=== PATIENT | male | born 1940 | race Caucasian/White ===

== ENCOUNTER 2024-05-07 18:58 | Inpatient (IN) | payer MEDICARE, SELFPAY ==
[2024-05-07] VITALS (17 sets, daily range): BP systolic 124–217; BP diastolic 71–125; PULSE 59–100; RESP 15–26; TEMP 36.6; O2SAT 88–94; BMI 26.4
--- NOTE | 2024-05-07 19:18 | CTR_ITS ---
PROCEDURE INFORMATION: Exam: CT Head Without Contrast Exam date and time: 05/07/2024 7:27 PM Age: 83 years old Clinical indication: Stroke-like symptoms; Altered mental status/memory loss; Additional info: Possible stroke TECHNIQUE: Imaging protocol: Computed tomography of the head without contrast. Radiation optimization: All CT scans at this facility use at least one of these dose optimization techniques: automated exposure control; mA and/or kV adjustment per patient size (includes targeted exams where dose is matched to clinical indication); or iterative reconstruction. Other technique: STROKE PROTOCOL was implemented. COMPARISON: No relevant prior studies available. RADIATION DOSE METRICS: Total DLP (mGy-cm): 1188.18 FINDINGS: Brain: Diffuse cerebral atrophy, consistent with patient's age. No hemorrhage. Small area of encephalomalacia/gliosis at the left occipital lobe. No evidence of acute territorial infarction. Mild bilateral cerebral white matter hypodensities likely on the basis of chronic microvascular ischemic change. No mass effect. Cerebral ventricles: Ventricles are in proportion to the degree of atrophy. Paranasal sinuses: Visualized sinuses are unremarkable. No fluid levels. Mastoid air cells: Visualized mastoid air cells are well aerated. Bones: No acute fracture. Small metallic densities along the left lamina papyracea without adjacent inflammatory change are likely chronic. Soft tissues: Unremarkable. Vasculature: Bilateral ICA and vertebral artery calcifications. Couple of tiny calcifications at the medial left parietal sulci are likely vascular. CT/CT head wo con* [id number]: 1[address] No CT evidence of acute territorial infarction, hemorrhage, or mass effect. 2. Small area of encephalomalacia/gliosis at the left occipital lobe may represent chronic infarct. 3. Small metallic densities along the left lamina papyracea without adjacent inflammatory change or fracture are likely chronic. ASSESSMENT: ASPECTS ([place] Stroke Program Early CT Score) is 10.
--- NOTE | 2024-05-07 19:18 | XRR_ITS ---
PROCEDURE INFORMATION: Exam: XR Chest Exam date and time: 05/07/2024 7:21 PM Age: 83 years old Clinical indication: Other: AMS; Prior surgery; Surgery date: 6+ months; Surgery type: Open heart; Additional info: Weakness TECHNIQUE: Imaging protocol: Radiologic exam of the chest. Views: 1 view. COMPARISON: No relevant prior studies available. FINDINGS: Lungs: Pulmonary hypoinflation without consolidation. Pleural spaces: Unremarkable. No pleural effusion. No pneumothorax. Heart/Mediastinum: Unremarkable. No cardiomegaly. Bones/joints: Degenerative changes along the spine and shoulders. Prior median sternotomy. XR/XR chest 1V portable [id number] IMPRESSION: No acute findings.
--- NOTE | 2024-05-07 19:18 | CTR_ITS ---
PROCEDURE INFORMATION: Exam: CTA Head With Contrast, Arteriography Exam date and time: 05/07/2024 7:31 PM Age: 83 years old Clinical indication: Stroke-like symptoms; Left facial droop; Additional info: Possible stroke TECHNIQUE: Imaging protocol: Computed tomographic angiography of the head with contrast. Exam focused on the arteries. 3D rendering (Not supervised by radiologist): MIP and/or 3D reconstructed images were created by the technologist. Radiation optimization: All CT scans at this facility use at least one of these dose optimization techniques: automated exposure control; mA and/or kV adjustment per patient size (includes targeted exams where dose is matched to clinical indication); or iterative reconstruction. Contrast material: OMNI 350; Contrast volume: 100 ml; Contrast route: INTRAVENOUS (IV); COMPARISON: CT head wo con* [id number] 05/07/2024 7:27 PM RADIATION DOSE METRICS: Total DLP (mGy-cm): 531 FINDINGS: ANTERIOR CIRCULATION: Right internal carotid artery: Intracranial segment is patent with no significant stenosis. No aneurysm. Atherosclerotic calcification along the carotid siphon. Right middle cerebral artery: No occlusion or significant stenosis. No aneurysm. Right anterior cerebral artery: No occlusion or significant stenosis. No aneurysm. Left internal carotid artery: Intracranial segment is patent with no significant stenosis. No aneurysm. Atherosclerotic calcification along the carotid siphon. Left middle cerebral artery: No occlusion or significant stenosis. No aneurysm. Left anterior cerebral artery: No occlusion or significant stenosis. No aneurysm. POSTERIOR CIRCULATION: Right vertebral artery: No occlusion or significant stenosis. No aneurysm. Left vertebral artery: No occlusion or significant stenosis. No aneurysm. Basilar artery: No occlusion or significant stenosis. No aneurysm. Right posterior cerebral artery: No occlusion or significant stenosis. No aneurysm. Left posterior cerebral artery: origin. No occlusion or significant stenosis. No aneurysm. Brain: No definite mass, mass effect, or midline shift. Small area of encephalomalacia/gliosis at the left occipital lobe. Couple tiny vascular calcifications at the medial left parietal sulci. Cerebral ventricles: No hydrocephalus. Paranasal sinuses: Small right maxillary sinus mucous retention cyst. Bones/joints: Small metallic densities along the left lamina papyracea without adjacent inflammatory change or fracture are likely chronic. Soft tissues: Unremarkable. PROCEDURE INFORMATION: Exam: CTA Neck With Contrast Exam date and time: 05/07/2024 7:31 PM Age: 83 years old Clinical indication: Stroke-like symptoms; Left facial droop; Additional info: Possible stroke TECHNIQUE: Imaging protocol: Computed tomographic angiography of the neck with contrast. Exam focused on the cervical segments of the vasculature. 3D rendering (Not supervised by radiologist): MIP and/or 3D reconstructed images were created by the technologist. Radiation optimization: All CT scans at this facility use at least one of these dose optimization techniques: automated exposure control; mA and/or kV adjustment per patient size (includes targeted exams where dose is matched to clinical indication); or iterative reconstruction. Contrast material: OMNI 350; Contrast volume: 100 ml; Contrast route: INTRAVENOUS (IV); COMPARISON: 1. CT head wo con* [id number] 05/07/2024 7:27 PM 2. CR (CHEST, ) 05/07/2024 7:21 PM RADIATION DOSE METRICS: Total DLP (mGy-cm): 531 FINDINGS: Right common carotid artery: No stenosis. No dissection or occlusion. Right internal carotid artery: Mild stenosis of the proximal extracranial segment. No dissection or occlusion. Right external carotid artery: No occlusion or stenosis of the origin. Left common carotid artery: No stenosis. No dissection or occlusion. Left internal carotid artery: Moderate stenosis of the proximal extracranial segment approximately 50%. No dissection or occlusion. Left external carotid artery: No occlusion or stenosis of the origin. Right vertebral artery: No stenosis. No dissection or occlusion. Left vertebral artery: No stenosis. No dissection or occlusion. Soft tissues: Unremarkable. No significant soft tissue swelling. Bones/joints: No acute fracture. Mild degenerative change along the spine. Prior median sternotomy. Lungs: Mild emphysematous change of the imaged upper lungs. Minimal secretions at the lower trachea. Coronary arteries: Prior CABG. CT/CT angio headneck* [id number] IMPRESSION: No large vessel stenosis or occlusion. IMPRESSION: 1. Moderate left proximal ICA stenosis. 2. Mild right proximal ICA stenosis. REFERENCES: NASCET CRITERIA. The degree of stenosis in the cervical segment of the internal carotid artery is based on NASCET criteria. Normal is no stenosis. Mild is less than 50% stenosis. Moderate is 50-69% stenosis. Severe is 70% to 99% stenosis. Total occlusion is no detectable patent lumen.
--- NOTE | 2024-05-07 19:29 | ED_ITS ---
HPI - Neuro Symptoms/Deficit 2 General: Chief Complaint: Neuro Symptoms/Deficit Stated Complaint: Possible Stoke, Dissorated,left side Weakness Time Seen by Provider: 05/07/24 19:05 History of Present Illness: 83-year-old man with a history of hypert ension and coronary artery disease status post CABG who currently takes no medications and says he controls his blood pressure with [id number] type medications who presents to the emergency room after having an episode of word salad and facial droop. Last known well time was about 2 hours ago. Family says that he had word salad and slurred speech and left facial droop. He had no trouble walking. No focal motor deficits in his extremities. By the time he arrives here symptoms have almost completely resolved. Family says he seems just a little bit tired. He still seems to take a little bit of time to answer questions. Family says he has been quite stressed out recently because they moved him out of his home and is living with them. He is on no blood thinners. Review of Systems 2 Narrative: Constitutional symptoms: Negative except as documented in HPI. Skin symptoms: Negative except as documented in HPI. Eye symptoms: Negative except as documented in HPI. ENMT symptoms: Negative except as documented in HPI. Respiratory symptoms: Negative except as documented in HPI. Cardiovascular symptoms: Negative except as documented in HPI. Gastrointestinal symptoms: Negative except as documented in HPI. Genitourinary symptoms: Negative except as documented in HPI. Musculoskeletal symptoms: Negative except as documented in HPI. Neurologic symptoms: Negative except as documented in HPI. Psychiatric symptoms: Negative except as documented in HPI. Endocrine symptoms: Negative except as documented in HPI. Physical Exam 2 Narrative: EXAM NARRATIVE: General: Alert, no acute distress. Skin: Warm, dry. Head: Normocephalic, atraumatic. Neck: Supple, trachea midline. Eye: Extraocular movements are intact. Ears, nose, mouth and throat: mucosa moist. Cardiovascular: Regular, Normal peripheral perfusion. Respiratory: Lungs are clear to auscultation, respirations are non-labored, breath sounds are equal, Symmetrical chest wall expansion. Gastrointestinal: Soft, Nontender, Non distended Musculoskeletal: Normal ROM, no deformity. Neurological: Alert and oriented, No focal neurological deficit observed. Psychiatric: Cooperative, appropriate mood & affect. Course 2 Vital Signs: Vital signs: Vital Signs Temperature 97.9 F 05/07/24 19:02 Pulse Rate 83 05/07/24 20:22 Respiratory Rate 16 05/07/24 20:22 Blood Pressure 171/102 05/07/24 20:22 Pulse Oximetry 92 05/07/24 20:22 Oxygen Delivery Me thod Room Air 05/07/24 19:02 MDM - Neuro Symptoms/Deficit Medical Decision Making Medical decision making: Differential diagnosis for patient with focal neurologic deficit(s) includes but not limited to and based on the above HPI, review of systems and physical exam: ischemic stroke, hemorrhagic stroke and embolic stroke secondary to atrial fibrillation), TIA, Rodriguez's palsey, metabolic encephalopathy with previous stroke. Orders placed to evaluate differential diagnosis based on the above differential, HPI and physical exam NIH Stroke Scale/Score (NIHSS) from [employer] on 05/07/2024 All calculations should be rechecked by clinician prior to use RESULT SUMMARY: 0 points NIH Stroke Scale INPUTS: 1A: Level of consciousness ?> 0 = Alert; keenly responsive 1B: Ask month and age ?> 0 = Both questions right 1C: 'Blink eyes' & 'squeeze hands' ?> 0 = Performs both tasks 2: Horizontal extraocular movements ?> 0 = Normal 3: Visual steele ?> 0 = No visual loss 4: Facial palsy ?> 0 = Normal symmetry 5A: Left arm motor drift ?> 0 = No drift for 10 seconds 5B: Right arm motor drift ?> 0 = No drift for 10 seconds 6A: Left leg motor drift ?> 0 = No drift for 5 seconds 6B: Right leg motor drift ?> 0 = No drift for 5 seconds 7: Limb Ataxia ?> 0 = No ataxia 8: Sensation ?> 0 = Normal; no sensory loss 9: Language/aphasia ?> 0 = Normal; no aphasia 10: Dysarthria ?> 0 = Normal 11: Extinction/inattention ?> 0 = No abnormality Consultation: I spoke with Dr. Shipley was on-call for neurology. Recommend CT and CTA. Recommends bringing blood pressure down slowly with a Cardene drip. Further recommendations after his review with patient and his cardiology consult, 2D echo, 81 mg aspirin and a noncontrast MRI tomorrow. Lab Review: Laboratory results were reviewed and interpreted by myself the emergency room physician. Lab work is fairly unremarkable. White count is 4.6. Hemoglobin normal at 14.9. BUN and creatinine are normal at 15 and 0.9. His platelets are slightly low at 150. CT head: Small area of encephalomalacia at the occipital lobe that may represent a chronic infarct. No acute intracranial process. no intracranial hemorrhage, no evidence of infarct. no evidence of acute fracture.this was reviewed and interpreted by myself the emergency room physician. I also reviewed the radiology report. CTA of the head and neck: There is moderate left proximal ICA stenosis and mild right proximal ICA stenosis. This was reviewed and interpreted by myself the emergency room physician. I also reviewed the radiology report. I reviewed the patient's medical record. Reexamination: Patient remained stable. No focal motor deficits. No confusion. No dysarthria. No facial droop. No increased work of breathing. Assessment and plan: TIA Accelerated hypertension ? Cardene drip for slow reduction of blood pressure ? 81 mg aspirin -I discussed the patient with the hospitalist on-call who is admitting the patient. - Discussed findings and plan with patient. Answered any questions. - All laboratory values were reviewed and interpreted personally by myself, the ER physician - All imaging was reviewed and interpreted personally by myself, the ER physician. - Evaluation and treatment of this problem were appropriate in the emergency setting -I spent a total of >35 minutes of critical care time managing the patient, independent of any other practitioner. -The time involved in the performance of separately reportable procedures was not counted towards critical care time. Lab Data 05/07/24 19:15 05/07/24 19:15 Radiology Impressions Chest X-Ray 05/07/24 19:18 IMPRESSION: No acute findings. Head CT 05/07/24 19:18 IMPRESSION: 1. No CT evidence of acute territorial infarction, hemorrhage, or mass effect. 2. Small area of encephalomalacia/gliosis at the left occipital lobe may represent chronic infarct. 3. Small metallic densities along the left lamina papyracea without adjacent inflammatory change or fracture are likely chronic. ASSESSMENT: ASPECTS ([place] Stroke Program Early CT Score) is 10. Head/Neck CTA 05/07/24 19:18 IMPRESSION: No large vessel stenosis or occlusion. IMPRESSION: 1. Moderate left proximal ICA stenosis. 2. Mild right proximal ICA stenosis. REFERENCES: NASCET CRITERIA. The degree of stenosis in the cervical segment of the internal carotid artery is based on NASCET criteria. Normal is no stenosis. Mild is less than 50% stenosis. Moderate is 50-69% stenosis. Severe is 70% to 99% stenosis. Total occlusion is no detectable patent lumen. Laboratory Results WBC 4.61 10^3/uL (3.29-11.43) 05/07/24 19:15 RBC 5.30 10^6/uL (3.85-5.65) 05/07/24 19:15 Hgb 14.90 g/dL (11.27-16.99) 05/07/24 19:15 Hct 47.6 % (37-53) 05/07/24 19:15 MCV 89.8 fl (82-101) 05/07/24 19:15 MCH 28.1 pg (27-33) 05/07/24 19:15 MCHC 31.3 g/dL (30-55) 05/07/24 19:15 RDW 14.6 % (12.1-15.1) 05/07/24 19:15 Plt Count 150 10^3/cmm (157-399) L 05/07/24 19:15 MPV 9.8 fL (7.4-10.4) 05/07/24 19:15 Neut % (Auto) 63.9 % 05/07/24 19:15 Lymph % (Auto) 25.8 % 05/07/24 19:15 [place] % (Auto) 6.5 % 05/07/24 19:15 Eos % (Auto) 2.4 % 05/07/24 19:15 Baso % (Auto) 0.7 % 05/07/24 19:15 Neut # (Auto) 2.95 10^3/uL (1.8-7.7) 05/07/24 19:15 Lymph # (Auto) 1.2 10^3/uL (0.8-4.8) 05/07/24 19:15 [place] # (Auto) 0.3 10^3/uL (0.2-0.9) 05/07/24 19:15 Eos # (Auto) 0.1 10^3/uL (0.0-0.8) 05/07/24 19:15 Baso # (Auto) 0.0 10^3/uL (0.0-0.1) 05/07/24 19:15 Nucleated RBC % (auto) 0 % 05/07/24 19:15 Nucleated RBCs # 0.0 /100WBC 05/07/24 19:15 PT 13.50 SECONDS (12.1-14.9) 05/07/24 19:15 INR 1.00 (0.8-1.2) 05/07/24 19:15 APTT 26.2 SECONDS (23.9-36.7) 05/07/24 19:15 Sodium 140 mmol/L (136-145) 05/07/24 19:15 Potassium 4.1 mmol/L (3.5-5.1) 05/07/24 19:15 Chloride 104 mmol/L (98-107) 05/07/24 19:15 Carbon Dioxide 27 mmol/L (22-29) 05/07/24 19:15 Anion Gap 13.1 (5-19) 05/07/24 19:15 BUN 15 mg/dL (8-23) 05/07/24 19:15 Creatinine 0.9 mg/dL (0.7-1.2) 05/07/24 19:15 GFR Calculation Not Reportable 05/07/24 19:15 Glucose 118 mg/dL (65-115) H 05/07/24 19:15 Calculated Osmolality 292 mOsm/kg (285-295) 05/07/24 19:15 Calcium 9.3 mg/dL (8.5-10.5) 05/07/24 19:15 Total Bilirubin 0.3 mg/dL (0.15-1.2) 05/07/24 19:15 AST 16 U/L (0-40) 05/07/24 19:15 ALT 16 U/L (0-41) 05/07/24 19:15 Alkaline Phosphatase 96 U/L (40-130) 05/07/24 19:15 Total Protein 7.9 g/dL (6.6-8.7) 05/07/24 19:15 Albumin 4.3 g/dL (3.5-5.2) 05/07/24 19:15 Globulin 3.6 g/dL (1.3-4.6) 05/07/24 19:15 Urine Color Yellow (Yellow) 05/07/24 19:49 Urine Appearance Clear (CLEAR) 05/07/24 19:49 Urine pH 5 (5-7) 05/07/24 19:49 Ur Specific [place]iler 1.010 (1.005-1.030) 05/07/24 19:49 Urine Protein Neg (Negative) 05/07/24 19:49 Urine Glucose (UA) Norm (Normal) 05/07/24 19:49 Urine Ketones Negative (Negative) 05/07/24 19:49 Urine Blood Neg (Negative) 05/07/24 19:49 Urine Nitrate Negative (Negative) 05/07/24 19:49 Urine Bilirubin Neg (Negative) 05/07/24 19:49 Urine Urobilinogen Norm mg/dL (Negative) 05/07/24 19:49 Ur Leukocyte Esterase Negative (Negative) 05/07/24 19:49 Urine RBC None /hpf (0-2) 05/07/24 19:49 Urine WBC None /hpf (0-5) 05/07/24 19:49 Ur Squamous Epith Cells 0-4 /hpf (0-5) H 05/07/24 19:49 Amorphous Sediment Not Reportable 05/07/24 19:49 Urine Bacteria Trace /hpf (NONE) 05/07/24 19:49 All radiology interpretation(s) finalized by discharge Discharge Plan Discharge Patient Disposition: Placed in Observation Clinical Impression: Transient cerebral ischemia, Accelerated hypertension Coding Level of Care Code ED Liquor Inspector for Harpreet Alcaraz
[2024-05-07 19:33] LABS: Basophils % 0.7 %; Eosinophils # 0.1 10^3/uL (0.0-0.8); Eosinophils % 2.4 %; Hematocrit 47.6 % (37-53); Lymphocytes # 1.2 10^3/uL (0.8-4.8); Lymphocytes % 25.8 %; Mean Corpuscular HGB Conc 31.3 g/dL (30-55); Mean Corpuscular Hemoglobin 28.1 pg (27-33); Mean Corpuscular Volume 89.8 fl (82-101); Mean Platelet Volume 9.8 fL (7.4-10.4); Monocytes # 0.3 10^3/uL (0.2-0.9); Monocytes % 6.5 %; Neutrophils # 2.95 10^3/uL (1.8-7.7); Neutrophils % 63.9 %; Nucleated Red Blood Cells % 0 %; Platelet Count 150 10^3/cmm (157-399); Red Cell Distribution Width 14.6 % (12.1-15.1); White Blood Count 4.61 10^3/uL (3.29-11.43)
[2024-05-07 19:37] LABS: Partial Thromboplastin Time 26.2 SECONDS (23.9-36.7)
[2024-05-07 19:41] LABS: Alanine Aminotransferase 16 U/L (0-41); Albumin Level 4.3 g/dL (3.5-5.2); Alkaline Phosphatase 96 U/L (40-130); Anion Gap 13.1 (5-19); Aspartate Amino Transferase 16 U/L (0-40); Blood Urea Nitrogen 15 mg/dL (8-23); Calcium 9.3 mg/dL (8.5-10.5); Carbon Dioxide 27 mmol/L (22-29); Chloride 104 mmol/L (98-107); Creatinine Clr Calc Pharmacy 72.5237; Globulin 3.6 g/dL (1.3-4.6); Glucose 118 mg/dL (65-115); Osmolality Calculated 292 mOsm/kg (285-295); Potassium 4.1 mmol/L (3.5-5.1); Sodium 140 mmol/L (136-145); Total Bilirubin 0.3 mg/dL (0.15-1.2); Total Protein 7.9 g/dL (6.6-8.7)
[2024-05-07] MEDS: iohexol 350 mg/mL 500 mL Btl (per mL) IV (19:41)
[2024-05-07] MEDS: nicardipine 20 MG/200 ML PREMIX 50 MG IV (20:09)
[2024-05-07 20:10] LABS: Bilirubin Urine Neg (Negative); Blood Urine Neg (Negative); Glucose Urine UA Norm (Normal); Ketones Urine Negative (Negative); Leukocyte Esterase Urine Negative (Negative); Nitrate Urine Negative (Negative); Protein Urine Neg (Negative); Urine Appearance Clear (CLEAR); Urine Color Yellow (Yellow); Urobilinogen Urine Norm (Negative); pH Urine 5 (5-7)
[2024-05-07 20:11] LABS: Add Urine Culture? No; Bacteria Urine TRACE /hpf; Squamous Epithelial Cell Urine 0-4 /hpf (0-5)
--- NOTE | 2024-05-07 20:23 | P.CONIM_ITS ---
Providers/Reason For Consult 2 Consulting Physician/Specialty*: Oren Shipley MD neurology and epilepsy Reason for Consult*: Transient ischemic attack manifested as slurred speech with left-sided facial drooping and left upper extremity weakness and inability to stand on 05/07/2024 History of Present Illness History of Present Illness Jamison Serrato is a 83 year old male with a history of hypertension and coronary artery disease status post coronary artery bypass graft in 2018. Patient also has history of short-term memory difficulty. On 05/07/2024 around 4 PM the patient was reported to attempt to take a nap. The patient's family member heard the patient making noise and when the family member checked on the patient he was displaying slurred speech, left lower facial weakness, left arm weakness and inability to get up. The patient's was reported to have some improvement in his instability and was able to stand and walk but continued to have slurred speech, left lower facial weakness and left arm weakness. The patient was brought by the family via a personal vehicle to [facility] emergency room. In the emergency room the patient's blood pressure was reported to be significantly elevated. According to the family member who was present at [facility] emergency room, the patient has been using homeopathic medications for blood pressure and heart disease and has not been on any prescription medications for approximately 3 years. NIH score = 0. Serum glucose 118. No code stroke was initiated but I was contacted by Dr. Wilma Orozco the emergency room physician at 7:20 PM on 05/07/2024. Although the patient presented to the [facility] emergency room within the intravenous thrombolytic window, the patient's NIH score =0 and therefore the patient was not a candidate for thrombolytics and no thrombolytics were administered. The patient will be scheduled to be admitted to the hospitalist and undergo 2D echocardiogram, cardiac evaluation and patient will be started on aspirin 81 mg p.o. now and 81 mg p.o. every morning. I recommended the patient be started on a lipid-lowering agent per NIH stroke protocol but the family member who was present in the [facility] emergency department room #11 refused for the patient to be on any cholesterol-lowering agents. The family member is aware of the potential risk of not following the NIH stroke protocol recommendations. The patient was started on intravenous Cardizem to lower his elevated blood pressure. Repeat blood pressure prior to starting Cardizem 198/105. Current blood pressure on IV Cardizem drip at low-dose 164/90 at 20:32 PM on 05/06/2024. Noncontrast head CT performed on 05/07/2024 revealed the following: Small area of encephalomalacia/gliosis at the left occipital lobe may represent chronic infarct. Small metallic densities along the left lamina papyracea without adjacent inflammatory change or fracture are likely chronic. CT angiogram of the head and neck 05/07/2024 revealed the following: IMPRESSION: 1. Moderate left proximal ICA stenosis. 2. Mild right proximal ICA stenosis. Drug allergies: Sulfur and penicillin Current home medications: Homeopathic medication for hypertension and heart disease Past medical history: Coronary artery disease status post coronary artery bypass graft 2018 Hypertension Short-term memory difficulty Habits: Patient drinks 1 beer twice a week. Patient does not smoke. Social history: Currently the patient is living with his family Family history: Negative for strokes or TIAs Review of Systems 2 General: Reports: 10 or more systems reviewed and unremarkable except in HPI and below Medications/Allergies Allergies Allergy/AdvReac Type Severity Reaction Status Date / Time sulfa and penicillin when Allergy Unknown Uncoded 05/07/24 19:08 mixed Current Medications Generic Name Dose Route Start Last Admin Trade Name Freq PRN Reason Stop Dose Admin Nicardipine/Sodium Chloride 20 mg in 200 mls @ 0 mls/hr 05/07/24 19:30 05/07/24 20:09 Cardene IV 5 mg/hr .Q0M THAO 50 mls/hr Administration Protocol Per Protocol PFSH Acute 2 PFSH: Medical History (Updated 05/07/24 @ 20:34 by Alyson Mayen MD) Hypertension Coronary disease Vitals/I&O/Wt Last Vital Signs Temp 97.9 F 05/07/24 19:02 Pulse 83 05/07/24 20:22 Resp 16 05/07/24 20:22 BP 171/102 05/07/24 20:22 Pulse Ox 92 05/07/24 20:22 O2 Del Method Room Air 05/07/24 19:02 Weight last 48 hrs Weight 190 lb Physical Exam 2 Narrative: NIH score = 0 Serum glucose 118 Blood pressure 164/90 heart rate 75 respiration 16 temperature 97.9 The patient is alert and oriented to person place and situation. Speech fluent. The patient was able to repeat. He denied any pain. Head normocephalic. Neck supple. Cranial nerves II through XII intact. Pupils equal round and reactive to light and accommodation. The patient was able to follow commands and answer questions correctly. Visual steele full via confrontation. Extraocular movements intact. There were no nystagmus. Motor testing 5/5 bilaterally. There was no drift. Deep tendon reflexes 2+ bilaterally. Plantar responses flexor bilaterally. There was no clonus. Ixehnp-nowl-siezej and hasf-bwef-yjpv maneuvers revealed no ataxia. Sensory examination was intact to touch. There was no extinction on double sensory stimulation. Throat clear. Lungs clear. Heart regular rhythm and rate. Extremities were negative for clubbing cyanosis or edema. Pulses 3+ bilaterally. Chest reveals signs of coronary artery bypass surgery. There was no sign of infection. Data 05/07/24 19:15 05/07/24 19:15 A&P Assessment and plan (1) Transient cerebral ischemia: Impression: 1. Transient ischemic attack manifested as slurred speech with left-sided facial drooping and left upper extremity weakness and inability to stand on 05/07/2024 2. Small area of encephalomalacia/gliosis at the left occipital lobe may represent chronic infarct. 3. Small metallic densities along the left lamina papyracea without adjacent inflammatory change or fracture are likely chronic. 4. Moderate left proximal ICA stenosis. 5. Mild right proximal ICA stenosis. 6. Coronary artery disease status post coronary artery bypass graft 2017 7. History of hypertension was treated with homeopathic medications with accelerated hypertension 8. Short-term memory loss Plan: 1. Recommend hospital admission to the hospitalist to address accelerated hypertension and monitor for any recurrent TIAs 2. Recommend cardiology consult to assess for embolic source for stroke and to address any cardiac issues 3. 2D echocardiogram to assess for embolic source for TIA 4. Agree with obtaining noncontrast head MRI to further assess for acute stroke if no contraindications NOTE: see head CT report 05/07/2024 5. Recommend starting aspirin 81 mg p.o. now and 81 mg p.o. every morning with food thereafter per NIH stroke protocol (the patient's family member agreed to the patient starting low-dose aspirin) 6. I recommended the patient be started on a lipid-lowering agent per NIH stroke protocol but the patient's family member refused. The patient's family member is aware of the potential health risk of not following the NIH stroke protocol recommendation and the family member voiced understanding. 7. Neurochecks and blood pressure checks per NIH stroke protocol 8. Agree with intravenous Cardizem to slowly lower blood pressure (2) Hypertensive emergency: (3) Accelerated hypertension: Consult Attestations 2 Medical Necessity Statement: The patient was evaluated by neurology for transient ischemic attack Coding Level of Care Code 72553 Diagnoses Transient cerebral ischemia G45.9 Hypertensive emergency I16.1 Accelerated hypertension I10
--- NOTE | 2024-05-07 20:30 | P.HP_ITS ---
Providers/Chief Complaint 2 Chief Complaint: Possible Stoke, Dissorated,left side Weakness History of Present Illness Jamison Serrato is a 83 year old male who carries history of hypertension, does not take allopathic medications, has been on some homeopathic medications for 3 yrs for blood pressure and heart disease presenting with chief complaint of slurred speech, left sided weakness. Patient symptoms started around 4 PM when he attempted to take a nap. Patient was brought in by the family, patient family checked on him when he was making some nauseous at that point he had some slurred speech she was out able to get up on his own from the bed he also noticed some left-sided facial droop. In the ER he was diagnosed with hypertensive emergency he was put on Cardene drip. His symptoms resolved by the time he arrived in the ER NIH score was 0 he was not a TNKase candidate. He arrived within 2 hours of his onset of symptoms. Daughter is at the bedside stating that her father has memory deficit he is not able to recall all events but stating in 2018 patient had open heart surgery since then he has not taken any medication at all including aspirin Plavix or atorvastatin. They are highly against atorvastatin's or any cholesterol- lowering medications secondary to side effects Patient does not have any history of diabetes patient endorsing history of arthritis but not sure what type daughter thinks it is gout. Daughter was questioning why am I trying to rehabilitation services counselor them about cholesterol- lowering medications I reviewed living will, patient is full code until there is an irreversible condition and patient not able to eat, talk or wake up Review of Systems 2 Const: Denies: fever(s) Eyes: Denies: change in vision ENMT: Denies: throat pain Card: Denies: chest pain Resp: Denies: dyspnea GI: Denies: abdominal pain Medications/Allergies Allergies Allergy/AdvReac Type Severity Reaction Status Date / Time sulfa and penicillin when Allergy Unknown Uncoded 05/07/24 19:08 mixed PFSH Acute 2 PFSH: Medical History Arthritis Hypertension Coronary disease Surgical History History of open heart surgery [facility] 2017 Social History Smoking and tobacco/nicotine status: former use of tobacco/nicotine Vitals/I&O/Wt Last Vital Signs Temp 97.9 F 05/07/24 19:02 Pulse 83 05/07/24 20:22 Resp 16 05/07/24 20:22 BP 171/102 05/07/24 20:22 Pulse Ox 92 05/07/24 20:22 O2 Del Method Room Air 05/07/24 19:02 Weight last 48 hrs Weight 86.183 kg Physical Exam 2 Narrative: And I 0 Able to move his extremities GCS 15 NIH 0 Nonfocal neuroexam Pleasant cough Not a good historian Forgetful Hypertensive Currently on Cardene drip at 5 Afebrile Currently on room air Abdomen soft S1, S2 Data 05/07/24 19:15 05/07/24 19:15 A&P Assessment and plan (1) Accelerated hypertension: (2) Transient cerebral ischemia: (3) Hypertensive emergency: Plan TIA ABCD score 5 Patient has not been on any medications for his hypertension history Hypertensive emergency Currently on Cardene drip MAP reduction 25% in next 6 to 8 hours Requested echo with bubble study, CT head CTA head and neck unremarkable other than ICA stenosis Appreciate neuro recommendations MRI requested for the morning Will request PT OT ST Hypertensive emergency currently on Cardene drip Added amlodipine, chlorthalidone and lisinopril low-dose MAP reduction 25% in next 6 to 8 hours Patient does not want to use statins, I will start him on aspirin and Plavix for 20 days and then continue aspirin, Will need extensive counseling to convince patient to take medications and I think daughter is strictly against all the atorvastatin's, they do not even want to try ezetimibe Check A1c level, TSH, D-dimer, monitor rhythm on telemetry, add antihypertensive regimen and wean off Cardene drip Will use pur?ed diet until speech evaluation Full code DVT prophylaxis: Lovenox Daughter is only okay with aspirin Plavix for now does not want ezetimibe or atorvastatin's, Patient had CABG/open heart surgery at [facility] 2018 since then he has not been taking any medications Memory impairment: Patient is not able to recall events able to give simple answers Attestations 2 Medical Necessity Statement*: Anticipating more than 2 midnights in the hospital for management of TIA, hypertensive emergency Diagnoses Accelerated hypertension I10 Transient cerebral ischemia G45.9 Hypertensive emergency I16.1
--- NOTE | 2024-05-07 20:36 | USCV_ITS ---
Jamison Serrato Age: 83 Gender: M : 1940 Exam Date: 05/07/2024 22:33 Ordering Phys: Alyson Mayen MD Technologist: FRANCISCO Exam Location: [facility] [place] Indication: BUBBLE STUDY c/o TIA, hx CAD s/p CABG but patient cannot recall the year, c/o facial droop, slurred speech, confusion BP: 200 / 83 HR: 68 Rhythm: Sinus Technical Quality: Adequate MEASUREMENTS (Male / Female) Normal Values 2D ECHO LV Diastolic Diameter PLAX 3.2 cm 4.2 - 5.9 / 3.9 - 5.3 cm IVS Diastolic Thickness 1.9 cm 0.6 - 1.0 / 0.6 - 0.9 cm IVS Systolic Thickness 2.0 cm LVPW Diastolic Thickness 1.6 cm 0.6 - 1.0 / 0.6 - 0.9 cm LVPW Systolic Thickness 1.2 cm LVOT Diameter 1.8 cm LV Ejection Fraction 2D Teich 57.1 % LV Ejection Fraction MOD 2C 67.1 % LV Ejection Fraction 2C AL 68.5 % LA Diameter 4.7 cm Aorta at Sinotubular Diameter 3.3 cm IVC Diameter 1.5 cm M-MODE LA Ao Ratio MM 1.0 AV Cusp Separation MM 1.8 cm DOPPLER AV Peak Velocity 127.0 cm/s LVOT Peak Velocity 103.0 cm/s AV Area Cont Eq vti 2.7 cm squared AV Area Cont Eq pk 2.1 cm squared MV Peak Velocity 101.0 cm/s MV Area PHT 3.6 cm squared Mitral E to A Ratio 0.7 TV Peak Velocity 262.0 cm/s TR Peak Velocity 278.0 cm/s TR Peak Gradient 30.9 mmHg TV Peak E Velocity 66.0 cm/s Right Atrial Pressure 3.0 mmHg Pulmonary Artery Systolic Pressu 33.9 mmHg PV Peak Velocity 89.0 cm/s FINDINGS Left Ventricle Left ventricle is normal in size. LV systolic function is normal with EF of 55 to 60%. No regional wall motion abnormalities are seen. Grade 1 diastolic dysfunction Right Ventricle Normal in size and function Right Atrium Normal in size. Bubble study is limited quality as short runs post saline bubble injection are recorded but no shunting is evident. Left Atrium Normal in size Mitral Valve Mild mitral annular calcification. Mild mitral regurgitation. Aortic Valve Aortic valve is thickened. No significant stenosis or regurgitation. Tricuspid Valve Mild tricuspid regurgitation. Pulmonary artery systolic pressure is normal. Pulmonic Valve Not well visualized Pericardium Normal Aorta Normal in size IVC Appears to be normal CONCLUSIONS LV systolic function is normal with EF of 55 to 60%. Grade 1 diastolic dysfunction. Bubble study is limited quality as short runs post saline bubble injection are recorded but no shunting is evident. Mild mitral regurgitation Mild tricuspid regurgitation No comparison studies are available. Kg Hernandez MD (Electronically Signed) Final Date: 08 May 2024 12:41 S
[2024-05-07 21:09] LABS: D Dimer 0.71 ug/mLFEU (0-0.59)
[2024-05-07] MEDS: lisinopril 20 mg Tablet PO (21:12)
[2024-05-07 21:25] LABS: Estmated Average Glucose 108; Hemoglobin A1C 5.4 % (4.0-6.0)
[2024-05-07 21:31] LABS: Vitamin B12 305 pg/mL (232-1245)
[2024-05-07 22:52] LABS: Uric Acid 6.9 mg/dL (3.4-7.0)
[2024-05-07] MEDS: aspirin 81 mg Chew Tablet PO (23:09)
[2024-05-07] MEDS: enoxaparin 40 mg/0.4 mL Syringe SUBCUT (23:09)
[2024-05-08] VITALS (24 sets, daily range): BP systolic 106–146; BP diastolic 61–97; PULSE 56–86; RESP 13–25; TEMP 36.4–36.7; O2SAT 87–94
[2024-05-08 04:24] LABS: Anion Gap 15.1 (5-19); Blood Urea Nitrogen 14 mg/dL (8-23); Calcium 9.1 mg/dL (8.5-10.5); Carbon Dioxide 28 mmol/L (22-29); Chloride 106 mmol/L (98-107); Glucose 110 mg/dL (65-115); Magnesium 2.2 mg/dL (1.7-2.3); Osmolality Calculated 299 mOsm/kg (285-295); Phosphorus 3.2 mg/dL (2.5-4.5); Potassium 5.1 mmol/L (3.5-5.1); Sodium 144 mmol/L (136-145)
--- NOTE | 2024-05-08 08:18 | ECG_ITS ---
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 Measurements Intervals [place] Rate: 76 P: 29 NE: 159 QRS: 29 QRSD: 102 T: 5 QT: 388 QTc: 439 Interpretive Statements SINUS RHYTHM INFERIOR MYOCARDIAL INFARCTION , PROBABLY OLD [40+ ms Q WAVE AND/OR ST/T ABNORMALITY IN II/aVF] No previous ECG available for comparison Electronically Signed On 05-08-2024 9:41:55 CDT by Kg Hernandez M.D. [id number]
[2024-05-08] MEDS: lisinopril 20 mg Tablet PO (09:25)
[2024-05-08] MEDS: sennosides-docusate Tablet 1 TAB PO (09:25)
[2024-05-08] MEDS: cyanocobalamin 1,000 mcg/mL SDV 1000 MCG IM (09:25)
[2024-05-08] MEDS: chlorthalidone 25 mg Tablet 12.5 MG PO (09:25)
[2024-05-08] MEDS: aspirin 81 mg EC Tablet PO (09:25)
[2024-05-08 09:28] LABS: Troponin(5th) Baseline 16 ng/L (0-15)
--- NOTE | 2024-05-08 10:19 | ECG_ITS ---
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 Measurements Intervals [place] Rate: 78 P: 32 IN: 165 QRS: 15 QRSD: 113 T: -1 QT: 375 QTc: 427 Interpretive Statements SINUS RHYTHM INFERIOR MYOCARDIAL INFARCTION , PROBABLY OLD [40+ ms Q WAVE AND/OR ST/T ABNORMALITY IN II/aVF] Compared to ECG 05/08/2024 08:36:01 No significant changes Electronically Signed On 05-08-2024 17:13:57 CDT by Kg Hernandez M.D. [id number]
[2024-05-08 11:21] LABS: Troponin 5 2HR 15.21 ng/L (0-15); Troponin 5 2HR Delta -0.79 ABS# (0-10)
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
--- NOTE | 2024-05-08 14:22 | ECG_ITS ---
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 Measurements Intervals [place] Rate: 78 P: 35 PA: 163 QRS: 29 QRSD: 101 T: 3 QT: 387 QTc: 441 Interpretive Statements SINUS RHYTHM INFERIOR MYOCARDIAL INFARCTION , PROBABLY OLD [40+ ms Q WAVE AND/OR ST/T ABNORMALITY IN II/aVF] Compared to ECG 05/08/2024 10:19:40 No significant changes Electronically Signed On 05-08-2024 17:13:15 CDT by Kg Hernandez M.D. [email or web address] [facility].[employer] [place]/store/[id number]
--- NOTE | 2024-05-08 16:15 | PC.NURSE ---
Discharge Note Patient discharged to [home] via [w/c to POV] accompanied by [family]. 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 Mobile pharmacy medications and/or prescriptions provided. Belongings/home medications returned.
== END 2024-05-08 16:15 | disposition home or self-care (01) | DRG 69 ==
LOC: ER 20:29 → CSU 05-08 00:35
PROVIDERS: Admitting Provider Internal Medicine; Emergency Provider Emergency Medicine; Visit Provider Family Medicine
DX: G45.9 Transient cerebral ischemic attack, unspecified (principal); I16.1 Hypertensive emergency; I10 Essential (primary) hypertension; I25.10 Atherosclerotic heart disease of native coronary artery without angina pectoris; Z95.1 Presence of aortocoronary bypass graft; G31.84 Mild cognitive impairment of uncertain or unknown etiology
CPT/HCPCS: 36415; 70450; 70496; 70498; 71045; 80048; 80053; 81001; 82607; 83036; 83735; 84100; 84443; 84484; 84550; 85025; 85378; 85610; 85730; 92523; 92610; 93005; 96365; 96372; 97116; 97161; 97165; 99285; C8924; J1650; J3420; Q9967

== ENCOUNTER → 2024-05-22 11:10 | Outpatient (BNVA) | payer MEDICARE, SELFPAY | DX: I10 Essential (primary) hypertension (principal) | CPT/HCPCS: 80053; 80061; 85025; 85379 ==

== ENCOUNTER 2024-05-27 16:13 | Outpatient (CLI) | payer MEDICARE, SELFPAY ==
--- NOTE | 2024-05-27 16:30 | USR_ITS ---
PROCEDURE INFORMATION: Exam: US Duplex Right Lower Extremity Veins, Limited Exam date and time: 05/27/2024 4:20 PM Age: 83 years old Clinical indication: Pain; Leg, lower; Right; Additional info: Right leg pain TECHNIQUE: Imaging protocol: Real-time duplex ultrasound of the right extremity with 2-D ngo scale, color Doppler flow and spectral waveform analysis including responses to compression and other maneuvers (when performed) with image documentation. Limited exam was focused on the right lower extremity veins. COMPARISON: No relevant prior studies available. FINDINGS: Right deep veins: Unremarkable. The common femoral, femoral, proximal profunda femoral and popliteal veins as well as the visualized deep veins of the lower leg are patent without thrombus. Normal Doppler waveforms. Normal compressibility and/or augmentation response. Superficial veins: Greater saphenous vein at the saphenofemoral junction is patent without thrombus. Soft tissues: Unremarkable. US/[place] [id number] IMPRESSION: No evidence of deep vein thrombosis.
== END 2024-05-27 16:14 | disposition home or self-care (01) ==
LOC: RAD 16:14
DX: M79.604 Pain in right leg (principal)
CPT/HCPCS: 80053; 80061; 85025; 85379; 93971

== ENCOUNTER 2024-06-06 13:39 | Outpatient (CLI) | payer MEDICARE, SELFPAY ==
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
[2024-06-06] MEDS: iohexol 350 mg/mL 500 mL Btl (per mL) IV (14:39)
== END 2024-06-06 13:40 | disposition home or self-care (01) ==
DX: G45.9 Transient cerebral ischemic attack, unspecified (principal)
CPT/HCPCS: 70470; Q9967

== ENCOUNTER → 2024-07-23 10:30 | Outpatient (BNVA) | payer MEDICARE, SELFPAY | PROVIDERS: Visit Provider Internal Medicine Cardiovascular Disease | DX: I25.10 Atherosclerotic heart disease of native coronary artery without angina pectoris (principal); I15.0 Renovascular hypertension; I63.89 Other cerebral infarction; I77.9 Disorder of arteries and arterioles, unspecified; E78.5 Hyperlipidemia, unspecified; Z87.891 Personal history of nicotine dependence | CPT/HCPCS: 99204 ==

== ENCOUNTER → 2024-08-14 08:47 | Outpatient (BNVA) | payer MEDICARE, SELFPAY | PROVIDERS: Visit Provider Psychiatry & Neurology Neurology | DX: I63.81 Other cerebral infarction due to occlusion or stenosis of small artery (principal) | CPT/HCPCS: 99212 ==

== ENCOUNTER → 2025-01-20 09:23 | Outpatient (BNVA) | payer MEDICARE, SELFPAY | PROVIDERS: Visit Provider Nurse Practitioner Family | DX: I25.10 Atherosclerotic heart disease of native coronary artery without angina pectoris (principal); I15.0 Renovascular hypertension; I63.89 Other cerebral infarction; I77.9 Disorder of arteries and arterioles, unspecified; E78.5 Hyperlipidemia, unspecified | CPT/HCPCS: 99213 ==

== ENCOUNTER → 2025-02-10 13:48 | Outpatient (BNVA) | payer MEDICARE, SELFPAY | PROVIDERS: Visit Provider Psychiatry & Neurology Neurology | DX: I63.81 Other cerebral infarction due to occlusion or stenosis of small artery (principal) | CPT/HCPCS: 99212 ==

== ENCOUNTER 2025-08-25 13:37 | Emergency (ER) | payer MEDICARE, SELFPAY ==
[2025-08-25] VITALS (8 sets, daily range): BP systolic 124–160; BP diastolic 73–100; PULSE 80–110; RESP 16; TEMP 36.6; O2SAT 91–98; BMI 26.0
--- NOTE | 2025-08-25 13:53 | W.ED.EXTPRO ---
HPI - Extremity Problem General: Chief complaint: Extremity Problem,Nontraumatic Stated complaint: L hand swollen Time Seen by Provider: 08/25/25 13:49 Source: patient and family Mode of arrival: ambulatory Limitations: no limitations History of Present Illness: Patient is a nice 84-year-old male who presents to ED today presumably with his daughter for evaluation of swelling to his left hand. Daughter states she noticed hand would intermittently swell over the past week but over the past day or so it has been more constant. They were reportedly seen at a walk-in clinic when provider had spotted an area of lymphangitic streaking thus was concerned and sent him to the emergency department. He has not had any injury or trauma to the hand. Daughter states he has had similar swelling to his feet that they attribute to arthritis and gout. Patient states he has not had any recent cuts, scrapes, abrasions, puncture wounds, etc. He has not had any systemic complaints including fevers, body aches, chills. MD Complaint: extremity pain and extremity swelling Onset (ago): day(s) Location: left and upper extremity (hand) Radiation: none Relieving factors: nothing Exacerbating factors: range of motion Associated symptoms: Deny chest pain, fever(s) or rash Related Data Previous Rx's ?Medication ?Instructions ?Recorded aspirin 81 mg tablet,delayed 81 mg PO DAILY 30 days #30 tabs 05/22/24 release doxycycline monohydrate 100 mg 100 mg PO Q12H 10 days #20 caps 08/25/25 capsule Allergies Allergy/AdvReac Type Severity Reaction Status Date / Time sulfa and penicillin when Allergy Unknown Uncoded 08/25/25 13:46 mixed Review of Systems Const: Denies: fever(s), chills, body aches, fatigue or malaise Card: Denies: chest pain Resp: Denies: dyspnea GI: Denies: nausea or vomiting Musc: Reports: extremity pain (L hand) and extremity swelling (L hand); Denies: neck pain or back pain Skin/Breast: Denies: rash Neuro: Denies: numbness in extremities, weakness in extremities or sensory changes [facility] ED PFSH: Medical History Accelerated hypertension Right leg pain TIA (transient ischemic attack) Arthritis Hypertension Coronary disease Surgical History History of open heart surgery [facility] 2017 Social History Smoking and tobacco/nicotine status: former use of tobacco/nicotine Alcohol intake: current Substance/Drug Use: never Adopted: No service: No Current occupational exposures/hazards: Yes Previous occupational history: [employer] - 50 years ago Physical Exam Const: COMMON NORMALS: no acute distress, average body habitus, patient oriented x3, no limitations, healthy appearing, alert and well nourished GENERAL APPEARANCE: cooperative Neck/C-Spine: COMMON NORMALS: full ROM, no lymphadenopathy, supple and no meningeal signs Chest: COMMONS NORMALS: normal inspection of the chest Resp: COMMON NORMALS: normal respiratory effort and clear to auscultation bilaterally AUSCULTATION: clear to auscultation bilaterally Cardio: COMMON NORMALS: regular rate and regular rhythm RATE: regular rate RHYTHM: regular rhythm Extremity: COMMON NORMALS: capillary refill normal GENERAL: Yes normal exam except as noted LEFT UPPER EXTREMITY: Yes hand & digits Left hand and digits: Yes inspection (edema affecting entire L hand with lymphangitic streaking up forearm), Yes ROM (tenderness with ROM but not out of proportion to exam) and Yes neurovascular exam (normal) OTHER: I do not prescient any cuts, scrapes, abrasions, puncture wounds. There is no abscess formation or obvious sign of infection injury point. Radial pulses intact. Hand is edematous and tender but tenderness is not out of proportion. Sensation is normal. He does have lymphangitic streaking traveling from radial hand to his volar forearm up into his AC space. I do not appreciate any epitrochlear lymphadenopathy Neuro: COMMON NORMALS: patient oriented x3, moves all extremities, no focal motor deficits and no sensory deficits noted SENSORIUM/ORIENTATION: Yes alert MENINGEAL SIGNS: Yes no meningeal signs Skin: NARRATIVE SKIN EXAM: see above Course Vital Signs: Vital signs: Vital Signs Temperature 97.8 F 08/25/25 13:40 Pulse Rate 83 08/25/25 15:00 Respiratory Rate 16 08/25/25 13:40 Blood Pressure 124/81 08/25/25 15:00 Pulse Oximetry 91 08/25/25 15:00 Oxygen Delivery Me thod Room Air 08/25/25 15:00 MDM - Extremity (Nontraumatic) Medical Decision Making Patient for swelling to the left hand with lymphangitic streaking up his volar forearm. Vital signs are stable. DDx includes cellulitis, lymphangitis, hand abscess, gout, deep space abscess, compartment syndrome, among others. Patient's blood work showing a normal white count. CRP is mildly elevated at 12.3. Patient was given IV vancomycin here in the emergency department and will be sent home on doxycycline for treatment of cellulitis/lymphangitis. Patient was given signs and symptoms that should prompt a return emergency evaluation. Otherwise I want him to follow-up with primary care later this week for re-evaluation. Differential Diagnosis Likely cellulitis and superficial thrombophlebitis Medical Records I reviewed the patient's medical records. Lab Data I reviewed the patient's lab results. 08/25/25 14:30 08/25/25 14:30 Laboratory Results WBC 7.27 10^3/uL (3.29-11.43) 08/25/25 14:30 RBC 4.95 10^6/uL (3.85-5.65) 08/25/25 14:30 Hgb 14.30 g/dL (11.27-16.99) 08/25/25 14:30 Hct 44.2 % (37-53) 08/25/25 14:30 MCV 89.3 fl (82-101) 08/25/25 14:30 MCH 28.9 pg (27-33) 08/25/25 14:30 MCHC 32.4 g/dL (30-55) 08/25/25 14:30 RDW 14.1 % (12.1-15.1) 08/25/25 14:30 Plt Count 155 10^3/cmm (157-399) L 08/25/25 14:30 MPV 9.9 fL (7.4-10.4) 08/25/25 14:30 Neut % (Auto) 80.7 % 08/25/25 14:30 Lymph % (Auto) 11.8 % 08/25/25 14:30 Butler % (Auto) 5.8 % 08/25/25 14:30 Eos % (Auto) 0.7 % 08/25/25 14:30 Baso % (Auto) 0.6 % 08/25/25 14:30 Neut # (Auto) 5.87 10^3/uL (1.8-7.7) 08/25/25 14:30 Lymph # (Auto) 0.9 10^3/uL (0.8-4.8) 08/25/25 14:30 Butler # (Auto) 0.4 10^3/uL (0.2-0.9) 08/25/25 14:30 Eos # (Auto) 0.1 10^3/uL (0.0-0.8) 08/25/25 14:30 Baso # (Auto) 0.0 10^3/uL (0.0-0.1) 08/25/25 14:30 Nucleated RBC % (auto) 0 % 08/25/25 14:30 Nucleated RBCs # 0.0 /100WBC 08/25/25 14:30 Sodium 138 mmol/L (136-145) 08/25/25 14:30 Potassium 4.4 mmol/L (3.5-5.1) 08/25/25 14:30 Chloride 102 mmol/L (98-107) 08/25/25 14:30 Carbon Dioxide 22 mmol/L (22-29) 08/25/25 14:30 Anion Gap 18.4 (5-19) 08/25/25 14:30 BUN 12 mg/dL (8-23) 08/25/25 14:30 Creatinine 0.9 mg/dL (0.7-1.2) 08/25/25 14:30 GFR Calculation Not Reportable 08/25/25 14:30 Glucose 127 mg/dL (65-115) H 08/25/25 14:30 Calculated Osmolality 287 mOsm/kg (285-295) 08/25/25 14:30 Lactic Acid 1.4 mmol/L (0.5-2.2) 08/25/25 14:30 Calcium 9.1 mg/dL (8.5-10.5) 08/25/25 14:30 Total Bilirubin 0.5 mg/dL (0.15-1.2) 08/25/25 14:30 AST 13 U/L (0-40) 08/25/25 14:30 ALT 8 U/L (0-41) 08/25/25 14:30 Alkaline Phosphatase 96 U/L (40-130) 08/25/25 14:30 C-Reactive Protein 12.3 mg/L (0.0-4.9) H 08/25/25 14:30 Total Protein 7.3 g/dL (6.6-8.7) 08/25/25 14:30 Albumin 3.9 g/dL (3.5-5.2) 08/25/25 14:30 Globulin 3.4 g/dL (1.3-4.6) 08/25/25 14:30 No radiology studies performed this visit Discharge Plan Discharge Patient Disposition: Home Clinical Impression: Cellulitis of left hand Condition: Stable Prescriptions: New doxycycline monohydrate 100 mg capsule 100 mg PO Q12H 10 Days Qty: 20 0RF No Action aspirin 81 mg tablet,delayed release (DR/EC) 81 mg PO DAILY 30 Days Qty: 30 2RF Discharge Orders: Discharge ED (Routine); Ordered 08/25/25 Ordered By: Lynnette Fernando Referrals: Kailyn Marks, CONSUMER SAF[employer]Y INSPECTOR [Primary Care Provider, [facility]] Patient Instructions: Cellulitis (ED), Lymphangitis (ED), Patient Portal & Brigida Instructions Activity Restrictions/Additional Instructions: As we discussed, please fill your antibiotics and start them immediately. You need to return to the emergency department for onset of worsening pain, swelling, worsening red streaking up your arm, fevers, generally feeling worse or unwell, repetitive episodes of vomiting, inability to tolerate your antibiotics, or any other concerns you may have. Otherwise, as we discussed, I would like you to follow-up with primary care later this week for reevaluation. Print Language: French Coding Level of Care Code ED Knockout Worker for Harpreet Alcaraz
[2025-08-25 14:43] LABS: Hematocrit 44.2 % (37-53); Hemoglobin 14.30 g/dL (11.27-16.99); Mean Corpuscular HGB Conc 32.4 g/dL (30-55); Mean Corpuscular Hemoglobin 28.9 pg (27-33); Mean Corpuscular Volume 89.3 fl (82-101); Nucleated Red Blood Cells % 0 %; Platelet Count 155 10^3/cmm (157-399); Red Blood Count 4.95 10^6/uL (3.85-5.65); White Blood Count 7.27 10^3/uL (3.29-11.43)
[2025-08-25 15:02] LABS: Alanine Aminotransferase 8 U/L (0-41); Albumin Level 3.9 g/dL (3.5-5.2); Alkaline Phosphatase 96 U/L (40-130); Anion Gap 18.4 (5-19); Aspartate Amino Transferase 13 U/L (0-40); Blood Urea Nitrogen 12 mg/dL (8-23); Calcium 9.1 mg/dL (8.5-10.5); Carbon Dioxide 22 mmol/L (22-29); Chloride 102 mmol/L (98-107); Creatinine Clr Calc Pharmacy 70.8073; Globulin 3.4 g/dL (1.3-4.6); Glucose 127 mg/dL (65-115); Osmolality Calculated 287 mOsm/kg (285-295); Potassium 4.4 mmol/L (3.5-5.1); Sodium 138 mmol/L (136-145); Total Protein 7.3 g/dL (6.6-8.7)
[2025-08-25 15:03] LABS: Lactic Sepsis W/Reflex 1.4 mmol/L (0.5-2.2)
== END 2025-08-25 16:52 | disposition home or self-care (01) ==
PROVIDERS: Emergency Provider Physician Assistant
DX: L03.114 Cellulitis of left upper limb (principal); Z79.82 Long term (current) use of aspirin; Z87.891 Personal history of nicotine dependence; I25.10 Atherosclerotic heart disease of native coronary artery without angina pectoris; Z86.73 Personal history of transient ischemic attack (TIA), and cerebral infarction without residual deficits; I10 Essential (primary) hypertension
CPT/HCPCS: 36415; 80053; 83605; 85025; 86140; 87040; 99283; J3373

== ENCOUNTER 2025-09-08 15:24 | Outpatient (CLI) | payer MEDICARE, SELFPAY ==
--- NOTE | 2025-09-08 15:35 | XR_ITS ---
WS: [email or web address] Exam: XR hand RT min 3V* [id number] Date/Time of Exam: 09/08/2025 3:50 PM Reason For Exam: joint pain/swelling DLP: No fracture. Mild to moderate degenerative narrowing of the IP and MP joints. Possible 3 mm soft tissue foreign body seen in the thumb near the DIP joint. XR/XR hand RT min 3V* [id number] IMPRESSION: 1. Mild to moderate degenerative changes. No fracture.
--- NOTE | 2025-09-08 15:35 | XR_ITS ---
WS: [email or web address] Exam: XR wrist LT min 3V* [id number] Date/Time of Exam: 09/08/2025 3:50 PM Reason For Exam: joint pain/swelling DLP: No acute fracture. Degenerative narrowing of the radiocarpal joint. There is some gapping between the scaphoid and lunate which may indicate intercarpal ligament tear. Normal soft tissues. XR/XR wrist LT min 3V* [id number] IMPRESSION: 1. Degenerative narrowing of the radiocarpal joint. 2. Scapholunate disassociation which may indicate intercarpal ligament tear.
--- NOTE | 2025-09-08 15:35 | XR_ITS ---
WS: [email or web address] Exam: XR hand LT min 3V* [id number] Date/Time of Exam: 09/08/2025 3:50 PM Reason For Exam: joint pain/swelling DLP: No acute fracture. Degenerative narrowing of the IP and MP joints. 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 No soft tissue foreign bodies. Degenerative narrowing of the radiocarpal joint. There may be radial abutment with the scaphoid. No soft tissue foreign bodies are seen. XR/XR hand LT min 3V* [id number] IMPRESSION: 1. Moderate degenerative changes in the IP and MP joints. 2. No fracture. Additional findings as above.
== END 2025-09-08 15:25 | disposition home or self-care (01) ==
LOC: RAD 15:26
DX: M19.032 Primary osteoarthritis, left wrist (principal); R93.6 Abnormal findings on diagnostic imaging of limbs; M19.042 Primary osteoarthritis, left hand; M18.12 Unilateral primary osteoarthritis of first carpometacarpal joint, left hand; M19.041 Primary osteoarthritis, right hand
CPT/HCPCS: 73110; 73130; 84550; 85025; 85651; 86140; 86160; 86162; 86200; 86235; 86255; 86376; 86431